=== PATIENT | female | born 1990 | race Caucasian/White ===

== ENCOUNTER 2023-06-07 08:52 | Emergency (ER) | payer OTHER, BC ==
[~2023-06-07] VITALS: Ht 172.7 cm; Wt 108.1 kg
[2023-06-07 09:01] VITALS: BP 165/103; PULSE 91; RESP 18; TEMP 97.3; O2SAT 98
[2023-06-07] MEDS ORDERED: CEFTRIAXONE 500 MG VIAL IM ONE (11:35)
[2023-06-07] MEDS ORDERED: TINIDAZOLE 500 MG TABLET PO ONE ×2 (11:40→13:03)
[2023-06-07] MEDS ORDERED: azithromycin 250mg tablet PO ONE ×2 (11:40→13:02)
[2023-06-07] MEDS ORDERED: LEVONORGESTREL 1.5MG tablet 1.5 MG TABLET PO ONE ×2 (11:40→13:03)
[2023-06-07] MEDS ORDERED: CefTRIAXone 500MG IM Kit w/LIDOcaine IM ONE (13:03)
== END 2023-06-07 13:40 | disposition home or self-care (01) ==
LOC: ER 08:53 → EEVIPCON 08:53 → ER 13:40
DX: T76.21XA Adult sexual abuse, suspected, initial encounter (principal)
CPT/HCPCS: 96372; 99284; J0696